=== PATIENT | female | born 1960 | race Asian ===

== ENCOUNTER 2018-12-02 16:16 | Emergency (ER) | payer OTHER ==
[~2018-12-02] VITALS: Ht 170.2 cm; Wt 95.3 kg
[2018-12-02 16:16] VITALS: BP 160/90; TEMP 98
[~2018-12-02 16:16] MED LIST: FORTAMET1000 MG PO; IBUPROFEN IB200 MG PO; LISI10TA11 PO; LISPRO SC; MULTIVITAMI2 PO; TYLENOL325 MG PO; VITAMIN B-121000 MC2 PO; [UNRECOGNIZED DRUG - CODE] OR
[2018-12-02 17:03] LABS: PLATELET COUNT 253 K/uL (152-353)
[2018-12-02 17:07] LABS: POTASSIUM 4.1 mmol/L (3.6-5.2)
== END 2018-12-02 18:03 | disposition other institution (70) ==
LOC: ED 16:16
PROVIDERS: Emergency Medicine
DX: F28 Other psychotic disorder not due to a substance or known physiological condition (principal); I45.19 Other right bundle-branch block; Z04.6 Encounter for general psychiatric examination, requested by authority; Z79.899 Other long term (current) drug therapy
CPT/HCPCS: 80053; 80307; 80320; 80329; 81000; 85027; 93005; 99285

== ENCOUNTER 2020-06-19 17:35 | Emergency (ER) | payer OTHER ==
[~2020-06-19] VITALS: Ht 175.3 cm; Wt 95.3 kg
[~2020-06-19 17:35] MED LIST changes: +ASPIR-8181 MG PO; +ATOR20TA2 PO
[2020-06-19 17:52] VITALS: TEMP 98.9
[2020-06-19 18:01] LABS: PLATELET COUNT 260 K/uL (152-353)
[2020-06-19 18:08] LABS: POTASSIUM 4.6 mmol/L (3.6-5.2)
[2020-06-19 20:20] VITALS: BP 165/72
[2020-06-19] MEDS ORDERED: ASPIRIN 81 LOW81 MG PO (21:10)
[2020-06-19] MEDS ORDERED: [UNRECOGNIZED DRUG - OTHER] PO (21:11)
[2020-06-19] MEDS ORDERED: LISI10TA11 PO (21:12)
[2020-06-19] MEDS ORDERED: FORTAMET500 MG PO (21:14)
[2020-06-19] MEDS ORDERED: POLYETHYLE17 GM/SCO1 PO (21:16)
[2020-06-19] MEDS ORDERED: VITAMIN B12 PO (21:18)
[2020-06-19] MEDS ORDERED: BUSPIRONE HYDROC5 MG PO (21:21)
[2020-06-19] MEDS ORDERED: FORTAMET1000 MG PO (21:22)
[2020-06-19] MEDS ORDERED: NOVOLOG SC (21:26)
[2020-06-19] MEDS ORDERED: LANTUS SC (21:27)
[2020-06-26] MEDS ORDERED: MAGN400T4 PO (08:03)
[2020-06-26] MEDS ORDERED: FOLI1TAB26 PO (08:03)
[2020-06-26] MEDS ORDERED: CEFD300C2 PO (08:03)
[2020-06-26] MEDS ORDERED: ATOR20TA2 PO (08:04)
[2020-06-26] MEDS ORDERED: ESCI10TA PO (08:04)
== END 2020-06-19 20:20 | disposition other institution (70) ==
LOC: ED 17:35
PROVIDERS: General Practice
DX: R46.89 Other symptoms and signs involving appearance and behavior (principal); R45.850 Homicidal ideations; F20.89 Other schizophrenia; Z11.59 Encounter for screening for other viral diseases; Z04.6 Encounter for general psychiatric examination, requested by authority
CPT/HCPCS: 80053; 81000; 85008; 85027; 87077; 87086; 87088; 87186; 87635; 93005; 99283; U0003

== ENCOUNTER 2022-02-25 11:27 | Emergency (ER) | payer OTHER ==
[~2022-02-25] VITALS: Ht 177.8 cm; Wt 100.7 kg
[~2022-02-25 11:27] MED LIST changes: +ASPIRIN 81 LOW81 MG PO; +BUSPIRONE HYDROC5 MG PO; +CEFD300C2 PO; +ESCI10TA PO; +FOLI1TAB26 PO; +FORTAMET500 MG PO; +LANTUS SC; +MAGN400T4 PO; +NOVOLOG SC; +POLYETHYLE17 GM/SCO1 PO; +VITAMIN B12 PO; +[UNRECOGNIZED DRUG - OTHER] PO
[2022-02-25 11:30] VITALS: TEMP 97.8
[2022-02-25 11:47] LABS: PLATELET COUNT 265 K/uL (152-353)
[2022-02-25 11:59] VITALS: BP 175/81
[2022-02-25 12:08] LABS: POTASSIUM 4.3 mmol/L (3.6-5.2)
[2022-02-25] MEDS ORDERED: LIPITOR20 MG PO (12:38)
[2022-02-25] MEDS ORDERED: VITAMIN B-12500 MCG PO (12:39)
[2022-02-25] MEDS ORDERED: DOCU100C10 PO (12:40)
[2022-02-25] MEDS ORDERED: VITAMIN D1000 UNI1 PO (12:40)
[2022-02-25] MEDS ORDERED: FOLI1TAB26 PO (12:41)
[2022-02-25] MEDS ORDERED: ESCI10TA PO (12:41)
[2022-02-25] MEDS ORDERED: JARDIANCE10 MG PO (12:42)
[2022-02-25] MEDS ORDERED: LOSA50TA PO (12:43)
[2022-02-25] MEDS ORDERED: MAGNESIUM 400 M1 TAB PO (12:43)
[2022-02-25] MEDS ORDERED: LANTUS SOL100 UNIT/M SC (12:45)
[2022-02-25] MEDS ORDERED: METF100038 PO (12:46)
[2022-02-25] MEDS ORDERED: [UNRECOGNIZED DRUG - CODE] TOP (12:48)
[2022-02-25] MEDS ORDERED: CLOTCRE5 TOP (12:49)
[2022-02-25] MEDS ORDERED: TYLENOL325 MG PO (12:50)
[2022-02-25] MEDS ORDERED: [UNRECOGNIZED DRUG - OTHER] TOP (12:50)
[2022-02-25] MEDS ORDERED: CYCL10TA35 PO (12:51)
[2022-02-25] MEDS ORDERED: GERI-TUSSI100 MG/51 PO (12:52)
[2022-02-25] MEDS ORDERED: OXYC5TAB24 PO (12:53)
[2022-02-25] MEDS ORDERED: ONDANSETRON HYDR8 MG PO (12:53)
== END 2022-02-25 12:27 | disposition still patient (30) ==
LOC: ED 11:27
PROVIDERS: Emergency Medicine
DX: F20.89 Other schizophrenia (principal); R45.1 Restlessness and agitation; E11.9 Type 2 diabetes mellitus without complications; Z79.4 Long term (current) use of insulin; I10 Essential (primary) hypertension; Z98.890 Other specified postprocedural states; Z11.52 Encounter for screening for COVID-19; Z04.6 Encounter for general psychiatric examination, requested by authority
CPT/HCPCS: 80053; 81002; 85027; 87635; 93005; 99283; U0003